=== PATIENT | male | born 1980 | race African-American/Black ===

== ENCOUNTER 2017-10-14 20:18 | Emergency (ER) | payer BC, OTHER ==
[2017-10-14] MEDS ORDERED: Ketorolac Tromethamine 60 MG/2 ML VIAL ONE (20:39)
== END 2017-10-14 21:00 | disposition home or self-care (01) ==
LOC: NAV ERS 20:18
DX: K02.9 Dental caries, unspecified (principal); E11.9 Type 2 diabetes mellitus without complications
CPT/HCPCS: 96372; J1885

== ENCOUNTER 2017-12-26 14:25 | Emergency (ER) | payer BC ==
[2017-12-26] MEDS ORDERED: Insulin Regular 300 UNITS/3 ML VIAL ONE (15:03)
[2017-12-26 15:28] LABS: #Basophils 0.2 thou/uL (0.0-0.2); #Eosinphils 0.1 thou/uL (0.0-0.7); #Lymphocytes 3.1 thou/uL (1.20-3.40); #Monocytes 0.7 thou/uL (0.11-0.59); #Neutrophils 6.5 thou/uL (1.40-6.50); %Basophils 1.8 % (0.0-1.0); %Eosinophils 0.5 % (0.0-10.0); %Monocytes 6.7 % (0.0-10.0); Hemoglobin 15.4 g/dL (14.0-18.0); Mean Corpuscular HGB CONC 30.5 g/dL (32.0-36.0); Mean Corpuscular Hemoglobin 25.3 pg (27.0-31.0); Mean Platelet Volume 11.2 fL (7.4-10.4); Platelet Count 175 thou/uL (130-400); RBC Distribution Width 12.7 % (11.5-14.5); Red Blood Cell (RBC) Count 6.09 mill/uL (4.70-6.10); White Blood Cell (WBC) Count 10.6 thou/uL (4.8-10.8)
[2017-12-26 15:43] LABS: Bilirubin Negative (Negative); Blood, Urine Trace (Negative); Clarity Clear (Clear); Glucose, Urine (Dipstick) 500 mg/dL (Negative); Leukocyte Negative (Negative); Nitrite Negative (Negative); Protein, Urine (Dipstick) 30 mg/dL (Neg-Trace); Urobilinogen 0.2 mg/dL (0.2-1.0)
[2017-12-26 15:44] LABS: RBC/HPF None Seen HPF (0-3); Squamous Epithelial 0-3 HPF (0-3); WBC/HPF 0-3 HPF (0-3)
[2017-12-26 16:08] LABS: BUN (Urea Nitrogen) 24 mg/dL (8.9-20.6); Calc. Creatinine Clearance 0 mL/min (70-130); Carbon Dioxide 20 mmol/L (22-29); Estimated GFR-MDRD 50; Glucose 485 mg/dL (70-105)
[2017-12-26 16:09] LABS: AST (SGOT) 88 U/L (5-34); Albumin 5.1 g/dL (3.5-5.0); Alkaline Phosphatase 123 U/L (40-150); Bilirubin, Total 0.7 mg/dL (0.2-1.2); Calcium 10.1 mg/dL (7.8-10.44); Globulin 4.1 g/dL (2.4-3.5); Protein, Total 9.2 g/dL (6.0-8.3)
[2017-12-26 16:10] LABS: ALT (SGPT) 112 U/L (8-55); Chloride 96 mmol/L (98-107); Potassium 4.2 mmol/L (3.5-5.1)
[2017-12-26 16:11] LABS: Anion Gap 22 mmol/L (10-20); Sodium 134 mmol/L (136-145)
[2017-12-26 17:49] LABS: Anion Gap 22 mmol/L (10-20); BUN (Urea Nitrogen) 19 mg/dL (8.9-20.6); Calc. Creatinine Clearance 0 mL/min (70-130); Calcium 9.1 mg/dL (7.8-10.44); Carbon Dioxide 17 mmol/L (22-29); Chloride 103 mmol/L (98-107); Estimated GFR-MDRD 58; Glucose 334 mg/dL (70-105); Potassium 4.3 mmol/L (3.5-5.1); Sodium 138 mmol/L (136-145)
[2017-12-26] MEDS ORDERED: Sodium Chloride 0.9% 1,000 ML ONE (17:59)
[2017-12-26] MEDS ORDERED: Metoclopramide HCl 10 MG/2 ML VIAL ONE (17:59)
[2017-12-26] MEDS ORDERED: Sodium Chloride 0.9% 2,000 ML ONE (18:04)
== END 2017-12-26 19:33 | disposition home or self-care (01) ==
LOC: NAV ERS 14:25
DX: E11.65 Type 2 diabetes mellitus with hyperglycemia (principal); E86.0 Dehydration; M10.9 Gout, unspecified; Z79.84 Long term (current) use of oral hypoglycemic drugs
CPT/HCPCS: 36416; 80053; 81003; 81015; 85025; 96361; 96374; 96376; J1815; J2765; J7050